=== PATIENT | male | born 1995 | race Caucasian/White ===

== ENCOUNTER 2023-11-30 19:15 | Day surgery (SDC) | payer OTHER, SELFPAY ==
[2023-11-30] VITALS (9 sets, daily range): BP systolic 108–135; BP diastolic 42–84; PULSE 79–96; RESP 16–18; TEMP 36.4–36.8; O2SAT 95–98; BMI 30.8
--- NOTE | 2023-11-30 19:29 | ED_ITS ---
HPI - General Adult General Chief complaint: General Medical Stated complaint: ? Time Seen by Provider: 11/30/23 19:22 Source: patient Mode of arrival: ambulatory Limitations: no limitations History of Present Illness ED Provider: Dr. Antonette Stanley HPI narrative: Patient comes to the emergency room complaining of a piece of meat getting stuck in his esophagus. Patient states that throughout his life, this has happened at least 15 times. Patient states that about 3 years ago he had an esophageal dilation done. Patient is visiting from [place]. Patient has tried making himself vomit, which usually helps dislodged the foot. However, today it is not working. Patient denies any difficulty breathing. Related Data Allergies Allergy/AdvReac Type Severity Reaction Status Date / Time No Known Allergies Allergy Verified 11/30/23 19:29 Review of Systems 2 Review of Systems: Constitutional : No Weight loss, No Fever, No Chills, No Night Sweats, No Fatigue, No Malaise ENT/Mouth : No Hearing loss, No Ear Pain, No Nasal Congestion, No Sinus Pain, No Hoarseness, No sore throat, No Rhinorrhea, No Swallowing Difficulty Eyes: No Eye Pain, No Swelling, No Redness, No Foreign Body, No Discharge, No Vision Changes Cardiovascular : No Chest Pain, No SOB, No Dyspnea on Exertion, No Orthopnea, No Edema, No Palpitations Respiratory : No Cough, No Sputum, No Wheezing, No Smoke Exposure, No Dyspnea Gastrointestinal : Complaining of a piece of meat get stuck in the esophagus. No Nausea, No Vomiting, No Diarrhea, No Constipation, No abdominal Pain, No Hematochezia, No Melena Genitourinary : no irregular bleeding, No Dysuria, No Urinary Frequency, No Hematuria, No Urinary Incontinence, No Urgency, No Flank Pain, No Urinary Flow Changes, No Hesitancy Musculoskeletal : No joint pain, No Myalgias, No Joint Swelling Skin : No Skin Lesions, No rash Neuro : No Weakness, No Numbness, No Paresthesias, No Loss of Consciousness, No Dizziness, No Headache Psych : No Anxiety/Panic, No Depression, No SI/HI/AH/VH, No Social Issues, Heme/Lymph: No Bruising, No Bleeding,No Lymphadenopathy Endocrine : No Polyuria, No Polydipsia, No Temperature Intolerance [facility] Past Medical History Medical History (Updated 11/30/23 @ 21:02 by Antonette Stanley MD) Esophageal stricture Social History Social History Smoked in Last 30 Days: No Use of substances other than those prescribed or required for medical reasons: No Advance Directives: No Advance Directives Information Provided: No Physical Exam ED Vital Signs: Vital Signs - 24 hr 11/30/23 19:25 11/30/23 19:26 Temperature 98.2 F 98.2 F Pulse Rate 94 94 Respiratory Rate 18 18 Blood Pressure 135/84 135/84 Pulse Oximetry 97 98 Oxygen Delivery Method Room Air Room Air BMI result Body Mass Index 30.8 Const Other: Appearance: Alert. Oriented X3. Patient looks uncomfortable, actively vomiting and trying to make himself throw up by putting his fingers inside of his mouth Eyes: Pupils equal, round and reactive to light. ENT: Pharynx normal. Neck: Normal inspection. Neck supple. No lymph nodes noted. No crepitus CVS: Normal heart rate and rhythm. Pulses normal. Normal S1 and S2 Respiratory: No respiratory distress. Breath sounds normal. No Wheezing. No rales Abdomen: Soft and nontender. No rigidity. No distention. Skin: Skin warm and dry. Normal skin color. Normal skin turgor. Extremities: No lower extremity edema. No Lacerations. No Rash Neuro: Oriented X 3. No motor deficit. No sensory deficit. Moving all extremities. No slurred speech. CN 2 through 12 grossly intact Psych: calm, cooperative, normal affect Course Course Course Narrative: Patient has had multiple episodes of food getting stuck in his throat. Patient needs esophageal dilation every 3 years approximately. Patient states that the last time that this happened was 3 years ago. -patient being given IM glucagon and sublingual nitroglycerin. If this does not work, patient will likely need to go to the endoscopy suite Medications Administered Discontinued Medications Generic Name Dose Route Start Last Admin Trade Name Freq PRN Reason Stop Dose Admin Glucagon 1 mg 11/30/23 19:25 11/30/23 19:35 Glucagon Hcl 1 Mg Vial IM 11/30/23 19:26 1 mg ONCE ONE Administration Nitroglycerin 0.4 mg 11/30/23 19:25 11/30/23 19:35 Nitroglycerin 0.4 Mg Tab.Subl SUBLINGUAL 11/30/23 19:26 0.4 mg ONCE ONE Administration Medical Decision Making Medical Decision Making [facility] Narrative: -my interpretation of labs, no significant abnormality in hematology or chemistry. -after patient received sublingual nitroglycerin and IM glucagon, patient states that he had no change at all. Patient tried to drink water in vomited right back out. Patient not tolerating fluids. -Dr. Schwarz from Gastroenterology being consulted -I discussed the patient with Dr. Schwarz. At this time, patient is still unable to swallow, keeps spitting up, still has the sensation of foreign body/meat stuck in his throat. Patient can not tolerate p.o. -per Dr. Schwarz, patient will need to get an endoscopy tonight. Differential Diagnosis Differential Diagnoses: The differential diagnosis associated with the presentation includes Admission/Observation Consideration of admission/observation: Escalation of care including admission/observation considered Consult Healthcare Provider Management of the patient was discussed with: Senior Sales Representative Lab Data MDM Lab Attestation statement: I reviewed the patient's lab results. 11/30/23 19:36 11/30/23 19:36 Labs: Lab Results 11/30/23 Range/Units 19:36 WBC 9.2 (4.8-10.8) X10*3/uL RBC 4.88 (4.60-5.80) X10*6/uL Hgb 16.2 (14.0-18.0) g/dl Hct 43.8 (42.0-52.0) % MCV 89.8 (80.0-98.0) fL MCH 33.2 H (27.0-33.0) pg MCHC 37.0 H (31.0-36.0) g/dl RDW 12.8 (11.0-16.0) % Plt Count 292 (160-400) X10*3/uL MPV 9.4 (9.4-12.4) fL Immature Gran % (Auto) 0.3 (0.0-0.4) % Neut % (Auto) 60.8 (45-73) % Lymph % (Auto) 27.2 (20-40) % Jack % (Auto) 7.1 (2-11) % Eos % (Auto) 4.3 H (0-4) % Baso % (Auto) 0.3 (0-2) % Lymph # (Auto) 2.5 (1.2-4.9) X10*3/uL Jack # (Auto) 0.7 (0.1-1.2) X10*3/uL Eos # (Auto) 0.4 (0.0-0.4) X10*3/uL Baso # (Auto) 0.0 (0.0-0.2) X10*3/uL Abs Immat Gran (auto) 0.03 (0.00-0.03) X10*3/uL Absolute Neuts (auto) 5.6 (2.0-8.3) x10*3/uL Absolute Nucleated RBC 0.000 (0.0-0.012) X10*3/uL Nucleated RBC % (auto) 0.0 (0.0-0.2) /100WBC Sodium 141 (135-145) mmol/L Potassium 3.6 (3.3-5.1) mmol/L Chloride 108 (96-108) mmol/L Carbon Dioxide 22 (22-29) mmol/L Anion Gap 15 (12-20) BUN 9 (9-16) mg/dL Creatinine 0.96 (0.5-1.4) mg/dL Estim Creat Clear Calc 139.6 Estimated GFR > 60 Random Glucose 97 (60-115) mg/dL Calcium 9.7 (8.4-10.2) mg/dL Total Bilirubin 0.4 (0.0-1.0) mg/dL Direct Bilirubin 0.1 (0.0-0.5) mg/dL AST 44 H (5-37) U/L ALT 66 H (0-40) U/L Alkaline Phosphatase 75 (39-117) U/L Total Protein 8.0 (6.5-8.0) g/dL Albumin 4.7 (3.5-5.0) g/dL Critical Care Time Critical Care Time Critical Care Time: Yes Total Critical Care Time: 60 Attestation: I have personally provided critical care time. Time includes review of lab data, radiology results, discussion with consultants, and monitoring for potential decompensation. Intervention performed as documented. Discharge Plan Discharge Clinical Impression: Esophageal foreign body Patient Disposition: Still a Patient Print Language: Polish
--- NOTE | 2023-11-30 19:31 | MHC.EDTECH ---
Patient BIBA changed into hospital attire,vitals taken,patient placed on the monitoring and evaluation advisor,call santana in reach
[2023-11-30] MEDS: Nitroglycerin 0.4 MG TAB.SUBL SUBLINGUAL (19:35)
[2023-11-30] MEDS: glucagon HCL 1 MG VIAL IM (19:35)
[2023-11-30 19:44] LABS: MANUAL DIFF FLAG NO
[2023-11-30 20:09] LABS: Alanine Aminotransferase 66 U/L (0-40); Albumin Level 4.7 g/dL (3.5-5.0); Alkaline Phosphatase 75 U/L (39-117); Anion Gap 15 (12-20); Aspartate Amino Transferase 44 U/L (5-37); Bilirubin Direct 0.1 mg/dL (0.0-0.5); Bilirubin Total 0.4 mg/dL (0.0-1.0); Blood Urea Nitrogen 9 mg/dL (9-16); Calcium 9.7 mg/dL (8.4-10.2); Carbon Dioxide 22 mmol/L (22-29); Chloride 108 mmol/L (96-108); Creatinine Clr Calc Pharmacy 139.6; Estimated Glomerular Filt Rate > 60; Glucose Random 97 mg/dL (60-115); Potassium 3.6 mmol/L (3.3-5.1); Sodium 141 mmol/L (135-145)
[2023-11-30 20:30] LABS: Basophils Percent Auto 0.3 % (0-2); Eosinophils Absolute Auto 0.4 X10*3/uL (0.0-0.4); Eosinophils Percent Auto 4.3 % (0-4); Hematocrit 43.8 % (42.0-52.0); Hemoglobin 16.2 g/dl (14.0-18.0); Imm Gran Abs Auto 0.03 X10*3/uL (0.00-0.03); Imm Gran Pct Auto 0.3 % (0.0-0.4); Lymphocytes Absolute Auto 2.5 X10*3/uL (1.2-4.9); Lymphocytes Percent Auto 27.2 % (20-40); Mean Corpuscular Hemoglobin 33.2 pg (27.0-33.0); Mean Corpuscular Volume 89.8 fL (80.0-98.0); Mean Platelet Volume 9.4 fL (9.4-12.4); Monocytes Absolute Auto 0.7 X10*3/uL (0.1-1.2); Monocytes Percent Auto 7.1 % (2-11); Neutrophils Absolute Auto 5.6 x10*3/uL (2.0-8.3); Neutrophils Percent Auto 60.8 % (45-73); Platelet Count 292 X10*3/uL (160-400); Red Blood Count 4.88 X10*6/uL (4.60-5.80); Red Cell Distribution Width 12.8 % (11.0-16.0); White Blood Count 9.2 X10*3/uL (4.8-10.8)
--- NOTE | 2023-11-30 21:38 | MHC.EDTECH ---
Rounds and vitals completed,patient is sitting up,resting quietly visitor at bedside,call santana in reach
--- NOTE | 2023-11-30 21:58 | PC.NURSE ---
report given to YANY Garcia in surgery
--- NOTE | 2023-11-30 22:00 | HO.ANESPROP2 ---
[facility] Active Problems Active Problems: All Active Problems Esophageal foreign body (Acute) Past Medical History Medical History Esophageal stricture Functional capacity: independent ambulation Family History Family history of problems with anesthesia: No Surgical History History of Problems with Anesthesia: No Social History Social History Smoked in Last 30 Days: No Use of substances other than those prescribed or required for medical reasons: No Advance Directives: No Advance Directives Information Provided: No Meds Allergies Allergy/AdvReac Type Severity Reaction Status Date / Time No Known Allergies Allergy Verified 11/30/23 19:29 Exam Height,Weight and Vital Signs: Height 6 ft Weight 102.965 kg Last Vital Signs Temp 98.0 F 11/30/23 21:37 Pulse 79 11/30/23 21:37 Resp 18 11/30/23 21:37 BP 121/74 11/30/23 21:37 Pulse Ox 98 11/30/23 21:37 O2 Del Method Room Air 11/30/23 21:37 Pertinent Lab Results Pertinent Lab Results: Laboratory Tests 11/30/23 19:36 WBC 9.2 RBC 4.88 Hgb 16.2 Hct 43.8 MCV 89.8 MCH 33.2 H MCHC 37.0 H RDW 12.8 Plt Count 292 MPV 9.4 Immature Gran % (Auto) 0.3 Neut % (Auto) 60.8 Lymph % (Auto) 27.2 [place] % (Auto) 7.1 Eos % (Auto) 4.3 H Baso % (Auto) 0.3 Lymph # (Auto) 2.5 [place] # (Auto) 0.7 Eos # (Auto) 0.4 Baso # (Auto) 0.0 Abs Immat Gran (auto) 0.03 Absolute Neuts (auto) 5.6 Absolute Nucleated RBC 0.000 Nucleated RBC % (auto) 0.0 Sodium 141 Potassium 3.6 Chloride 108 Carbon Dioxide 22 Anion Gap 15 BUN 9 Creatinine 0.96 Estim Creat Clear Calc 139.6 Estimated GFR > 60 Random Glucose 97 Calcium 9.7 Total Bilirubin 0.4 Direct Bilirubin 0.1 AST 44 H ALT 66 H Alkaline Phosphatase 75 Total Protein 8.0 Albumin 4.7 Airway Heart: RRR Lungs: CTA Assessment and Plan Assessment Anesthesia Assessment: Anesthesia Plan Discussed and Chart Reviewed Final Anesthetic Review Family History of Problems with Anesthesia: No History of Problems with Anesthesia: No NPO: Yes ASA Class: II and Emergency Final Preanesthetic Review: Meds/Allgs Chart Reviewed, Consent Obtained/Reviewed and Anes Risks/Benef Reviewed Patient Risk: Low Procedure Risk: Intermediate Anesthetic Plan Anesthetic Plan: GA Disposition: Standard PACU
--- NOTE | 2023-11-30 22:05 | MHC.EDTECH ---
Belongings list completed,friend took ALL belongings
--- NOTE | 2023-11-30 22:09 | PC.NURSE ---
pt transferred to OR.
--- NOTE | 2023-11-30 22:42 | MHC.SHP ---
Pre-Procedural Eval Section A - 24 Hr Update-Section A only Date of Service: 11/30/23 The patient is an INPATIENT: No Changes since office visit: No Cold of Flu in the past 2 weeks, No New Medical Problems, No Changes in Medication and No Patient answered all questions The patient has been examined within 24 hours of the surgical procedure. The History & Physical has been completed within 30 days and I have reviewed it.: Yes Section B - Complete if H&P > 30 days Chief Complaint: ? Allergies: Allergies Allergy/AdvReac Type Severity Reaction Status Date / Time No Known Allergies Allergy Verified 11/30/23 19:29 Plan I have reviewed the history and physical and performed a pertinent physical examination on my patient. No changes have occurred unless specified. Time Spent With Patient Time: Total time managing care of this patient today ____ minutes.
--- NOTE | 2023-11-30 23:19 | HO.POSTANES ---
Post Anesthesia Evaluation Post Anesthesia Evaluation Date of Service: 11/30/23 Vital Signs: Vital Signs Temp Pulse Resp BP Pulse Ox O2 Del Method 11/30/23 23:10 84 16 121/73 95 Room Air 11/30/23 23:05 85 16 119/66 95 Room Air 11/30/23 23:03 97.7 F 81 16 126/83 96 Room Air 11/30/23 21:37 98.0 F 79 18 121/74 98 Room Air 11/30/23 19:26 98.2 F 94 18 135/84 98 Room Air 11/30/23 19:25 98.2 F 94 18 135/84 97 Room Air Anesthesia: General Endotracheal-GETA Mental Status: Awake Pain Control: Satisfactory Nausea/Vomiting: None Hydration: Adequate Anesthesia-Related Issues: No Anes. Related Issues
--- NOTE | 2023-12-01 01:04 | OP_ITS ---
DATE OF SERVICE: 11/30/2023 SURGEON: Percy Schwarz MD INDICATIONS: Esophageal foreign body. PREOPERATIVE DIAGNOSIS: POSTOPERATIVE DIAGNOSIS: PROCEDURE PERFORMED: Upper endoscopy with removal of esophageal foreign body. ESTIMATED BLOOD LOSS: COMPLICATIONS: ANESTHESIA: General anesthesia. ASSISTANTS: SPECIMENS: DESCRIPTION OF PROCEDURE: A history and physical performed. The risks and benefits of the procedure were explained to the patient. Informed consent was obtained. The patient was placed in the left lateral decubitus position. The Olympus videogastroscope was introduced into the esophagus, stomach, and duodenum. Examination was performed. The scope was removed. He tolerated the procedure well and was returned to recovery area in stable condition. FINDINGS: Esophagus: There was a large impacted food bolus in the distal esophagus. This was gently pushed through into the stomach with no immediate complications. The distal esophagus showed some signs of esophagitis where the food bolus had been impacted. There was no definite stricture identified. No biopsies were obtained. Stomach: The stomach was otherwise normal. Duodenum: The bulb and second portion were normal. IMPRESSION: Esophageal foreign body. RECOMMENDATIONS: Follow up in the office in 4 to 6 weeks for further evaluation of dysphagia. MD PAUL Loza/FREDDIEL / [id number]
--- NOTE | 2023-12-01 01:19 | CONS_ITS ---
DATE OF SERVICE: 11/30/2023 REFERRING PHYSICIAN: Dr. Stanley REASON FOR CONSULTATION: Esophageal food impaction. HISTORY OF PRESENT ILLNESS: The patient is a pleasant 28-year-old man who has previous esophageal problems, who presented to the emergency room tonight with a food impaction that began around 530 medical treatments for this were unsuccessful and he now presents for endoscopy. He has a history of previous impactions and states he has undergone esophageal dilations in the past. This appears to run in his family by his history. He denies significant reflux symptoms. He is otherwise healthy and denies cardiopulmonary issues. PAST MEDICAL HISTORY: Esophageal obstruction. CURRENT MEDICATIONS: Current medication list is reviewed in the chart. He does not take any medication as an outpatient. ALLERGIES: HE DENIES MEDICATION ALLERGIES. FAMILY HISTORY: This is reviewed with the patient and is positive for esophageal problems. SOCIAL HISTORY: There is no current tobacco, alcohol, or substance abuse. REVIEW OF SYSTEMS: SKIN: No pruritus. HEENT: Negative. CARDIOPULMONARY: No shortness of breath or chest pain. GASTROINTESTINAL: As above. GENITOURINARY: Negative. NEUROPSYCHIATRIC: Negative. PHYSICAL EXAMINATION: GENERAL: Shows a pleasant male, spitting into a receptacle. VITAL SIGNS: Stable. SKIN: Anicteric. HEENT: Shows no scleral icterus. NECK: Without lymphadenopathy or thyromegaly. LUNGS: Clear. HEART: Shows a regular rate and rhythm. S1, S2. No murmur. ABDOMEN: Soft without focal masses or tenderness. Bowel sounds are present. No organomegaly is noted. EXTREMITIES: Without edema. LABORATORY DATA: Reviewed. IMPRESSION: Esophageal foreign body. PLAN: Upper endoscopy. Risks and benefits of the procedure have been discussed with the patient who understands and agrees to proceed. MD PAUL Loza/KINGSLEY / [id number]
== END 2023-11-30 23:37 | disposition home or self-care (01) ==
LOC: HO.ED 21:03 → HO.SSS 21:07
PROVIDERS: Internal Medicine Gastroenterology; Emergency Provider Emergency Medicine; Visit Provider Emergency Medicine
PROC: 0DJ08ZZ Inspection of Upper Intestinal Tract, Via Natural or Artificial Opening Endoscopic (ICD-10-PCS; CPT 43235; principal; 2023-11-30 09:45)
DX: T18.128A Food in esophagus causing other injury, initial encounter (principal); W44.F3XA Food entering into or through a natural orifice, initial encounter; K20.80 Other esophagitis without bleeding
CPT/HCPCS: 43235; 36415; 80048; 80076; 85025; 96372; 99284; 99285; J1100; J1610; J2250; J2405; J2704